=== PATIENT | male | born 1990 | race Hispanic/Latino ===

== ENCOUNTER 2021-07-29 12:49 | Emergency (ER) | payer OTHER ==
[~2021-07-29] VITALS: Ht 180.3 cm; Wt 70.3 kg
[2021-07-29 13:10] VITALS: BP 118/60
[2021-07-29] MEDS ORDERED: TRIP30O TP (13:16)
[2021-07-29] MEDS ORDERED: TETANUS/DIPHTHERIA TOXOID [ADULT] 0.5 ML VIAL IM ONE (13:30)
[2021-07-29] MEDS ORDERED: NEOMY SULF/BACITRA/POLYMYXIN B 1 EACH PACKET TP SCH (13:30)
== END 2021-07-29 13:30 | disposition home or self-care (01) ==
LOC: EDH 12:49
DX: S01.01XA Laceration without foreign body of scalp, initial encounter (principal); Z88.1 Allergy status to other antibiotic agents; W22.8XXA Striking against or struck by other objects, initial encounter; Y93.89 Activity, other specified; Y92.89 Other specified places as the place of occurrence of the external cause; Y99.8 Other external cause status
CPT/HCPCS: 12001; 90714; 99282